=== PATIENT | male | born 1965 | race Caucasian/White ===

== ENCOUNTER 2020-07-01 08:23 | Inpatient (IN) | payer SELFPAY ==
[2020-07-01] MEDS ORDERED: Succinylcholine 200 MG/10 ml SYRINGE FS ONE (08:30)
[2020-07-01] MEDS ORDERED: Fentanyl 100 MCG/2 ML VIAL ONE ×2 (08:48→09:24)
[2020-07-01] MEDS ORDERED: Propofol 1,000 MG/100 ML VIAL IV ONE ×2 (08:51→09:34)
[2020-07-01 09:12] LABS: Actual Bicarbonate (HCO3a) 22.4 mEq/L (22-28); Analyzer IN Cardio ER; Base Excess (BEa) -3.3 mEq/L (-2.0 to +3.0); CO2 Tension 42.7 mmHg (35.0-45.0); Calcium, Ionized (arterial) 1.15 mmol/L (1.12-1.30); Carboxyhemoglobin (COHb) 0.9 gm% (0.0-3.0); Potassium - ABG Lab 3.85 mmol/L (3.70-5.30); pH, Arterial 7.34 (7.35-7.45)
[2020-07-01] MEDS ORDERED: fentaNYL Citrate/PF 2,000 MCG in Sodium Chloride 0.9% 60 ML IV SCH (09:15)
[2020-07-01 09:36] LABS: ALV-art Gradient 581.625 mmHg (0-20); Puncture Site RRA
--- NOTE | 2020-07-01 09:41 | RAD ---
CHEST 1 VIEW: Date: 07/01/2020 INDICATION: History of intubation. COMPARISON: None. FINDINGS: The patient is intubated with gastric catheter placement. Gastric catheter projects below the left he midiaphragm beyond the field of view. There is elevation of the left hemidiaphragm. There is slight i ncreased opacity in both lower lobes suspicious for subsegmental volume loss. Component of aspiration could have a similar appearance. No pneumothorax is grossly evident. No definite acute osseous abnor mality is noted. IMPRESSION: 1. Mild cardiomegaly. 2. ETT tube and gastric catheter placement. 3. Elevation of left hemidiaphragm. 4. Bibasilar air space disease possibly related to subsegmental atelectasis, pneumonia, or aspiratio n. Continued follow-up is recommended. POS: BH
--- NOTE | 2020-07-01 09:42 | CT ---
CT Brain WO Con History: Known head bleed. Comparison: CT brain same day Findings: Large intraparenchymal hemorrhage of the right temporoparietal lobe has increased in size. The greatest AP dimension is 5.2 cm, previously 3.4 cm. The greatest transverse dimension measures 5 cm, there is a 4 cm. Intraventricular hemorrhage has progressed with hemorrhage within both the rig ht and left lateral ventricles, third and fourth ventricles. There is also right sylvian fissure subarachnoid hemorrhage. Early subfalcine herniation. Right-left midline shift measures 8 mm. Small volume subarachnoid hemorr nika in the left sylvian fissure. Loss of normal sulcation due to mass effect and edema within the right frontal, parietal temporal and occipital lobes. Impression: Enlarging right temporoparietal intraparenchymal hemorrhage with progressive midline shif t, loss of normal right hemispheric sulcation due to mass effect, enlarging subarachnoid hemorrhage, and early subfalcine herniation.
[2020-07-01] MEDS ORDERED: manNITOL 20% 500 ML ONE ×2 (09:53→09:58)
[2020-07-01] MEDS ORDERED: manNITOL 20% 0 ML ONE (09:53)
[2020-07-01] MEDS ORDERED: Mannitol 12.5 GM/50 ML ONE ×2 (09:54→10:26)
[2020-07-01 10:04] LABS: #Eosinphils 0.1 thou/uL (0.0-0.7); #Monocytes 0.5 thou/uL (0.11-0.59); #Neutrophils 10.6 thou/uL (1.40-6.50); %Basophils 0.1 % (0.0-1.0); %Monocytes 4.1 % (0.0-10.0); %Neutrophils 86.9 % (42.0-75.0); Hemoglobin 16.3 g/dL (14.0-18.0); Mean Corpuscular HGB CONC 32.3 g/dL (32.0-36.0); Mean Corpuscular Hemoglobin 28.8 pg (27.0-31.0); Mean Corpuscular Volume 89.4 fL (78.0-98.0); Mean Platelet Volume 8.5 fL (7.4-10.4); Platelet Count 247 thou/uL (130-400); RBC Distribution Width 14.9 % (11.5-14.5); Red Blood Cell (RBC) Count 5.66 mill/uL (4.70-6.10); White Blood Cell (WBC) Count 12.2 thou/uL (4.8-10.8)
[2020-07-01] MEDS ORDERED: levETIRAcetam 2,000 MG in Sodium Chloride 0.9% 100 ML IVPB SCH (10:15)
[2020-07-01] MEDS ORDERED: niCARdipine 20MG In NaCl 20 MG/200 ML BAG ONE (10:17)
[2020-07-01] MEDS ORDERED: levETIRAcetam in NS 200 ML ONE (10:18)
[2020-07-01 10:23] LABS: ALT (SGPT) 27 U/L (8-55); AST (SGOT) 34 U/L (5-34); Albumin 4.2 g/dL (3.5-5.0); Alkaline Phosphatase 68 U/L (40-110); Anion Gap 16 mmol/L (10-20); BUN (Urea Nitrogen) 16 mg/dL (8.4-25.7); Bilirubin, Total 0.8 mg/dL (0.2-1.2); Calc. Creatinine Clearance 0 mL/min (70-130); Carbon Dioxide 26 mmol/L (22-29); Chloride 103 mmol/L (98-107); Estimated GFR-MDRD 79; Globulin 5.1 g/dL (2.4-3.5); Glucose 196 mg/dL (70-105); Potassium 4.6 mmol/L (3.5-5.1); Protein, Total 9.3 g/dL (6.0-8.3); Sodium 140 mmol/L (136-145)
[2020-07-01] MEDS ORDERED: SODIUM CHLORIDE 3% IVPB SCH (10:30)
[2020-07-01 10:48] LABS: INR-International Normal Ratio 1.5; Prothrombin Time 18.1 sec (12.0-14.7)
[2020-07-01 10:49] LABS: PTT 47.1 sec (22.9-36.1)
[2020-07-01] MEDS ORDERED: Sodium Chloride 0.9% 1,000 ML IV SCH (11:15)
[2020-07-01] MEDS: Sodium Chloride 0.9% 1,000 ML IV SCH (13:15)
[2020-07-01] MEDS ORDERED: niCARdipine 25 MG in Sodium Chloride 0.9% 250 ML 240 ML IVPB SCH ×2 (15:00→15:05)
--- NOTE | 2020-07-01 15:22 | PDOC.HHP ---
Hospitalist HPI - History of Present Illness Altered mental state History of Present Illness: Is a 54-year-old male patient with a history of hypertension, diabetes who was transferred from [place] on account of intracerebral hemorrhage. He presented there drowsy with dysphagia and hemiplegia CT scan noted intracerebral bleed. Patient had hypertension but has generally been nonadherent with his medications according to his At presentation here his blood pressure 164/87, pulse 71, temperature 98 sa turation 90% on room air. His labs showed WBC 12.2, CMP is essentially within normal limits besides glucose of 196, serum osmolality checked was 300. He was intubated on account of worsening mental status. Blood gas was 7.34 pH, bicarb 42.7. Repeat imaging was consistent with worsening intracerebral hemorrhage with enlarging right temporoparietal intraparenchymal bleed with progressive midline shift. Neurosurgery was consulted. He was started on Cardene drip for blood pressure control Hospitalist team consulted for admission. Hospitalist ROS - Review of Systems ROS unobtainable: due to mental status - Exam General - other findings: On bed on ventilator Heart: RRR, no murmur, no gallops Respiratory: no wheezes, no rales, no ronchi Extremities: no cyanosis, no clubbing, no edema Extremities - other findings: Chronic stasis dermatitis of left leg Psychiatric - other findings: Unresponsive on ventilator Hospitalist Results - Labs Result Diagrams: 07/01/20 09:50 07/01/20 17:32 Lab results: WBC 12.2 thou/uL (4.8-10.8) H 07/01/20 09:50 Hgb 16.3 g/dL (14.0-18.0) 07/01/20 09:50 Hct 50.6 % (42.0-52.0) 07/01/20 09:50 MCV 89.4 fL (78.0-98.0) 07/01/20 09:50 Plt Count 247 thou/uL (130-400) 07/01/20 09:50 Neutrophils % 86.9 % (42.0-75.0) H 07/01/20 09:50 ABG pH 7.34 (7.35-7.45) L 07/01/20 09:10 ABG pCO2 42.7 mmHg (35.0-45.0) 07/01/20 09:10 ABG pO2 78.0 mmHg (80.0-100.0) L 07/01/20 09:10 Sodium 140 mmol/L (136-145) 07/01/20 09:50 Potassium 4.6 mmol/L (3.5-5.1) 07/01/20 09:50 Chloride 103 mmol/L (98-107) 07/01/20 09:50 Carbon Dioxide 26 mmol/L (22-29) 07/01/20 09:50 BUN 16 mg/dL (8.4-25.7) 07/01/20 09:50 Creatinine 0.99 mg/dL (0.7-1.3) 07/01/20 09:50 Glucose 196 mg/dL (70-105) H 07/01/20 09:50 Calcium 9.0 mg/dL (7.8-10.44) 07/01/20 09:50 Total Bilirubin 0.8 mg/dL (0.2-1.2) 07/01/20 09:50 AST 34 U/L (5-34) 07/01/20 09:50 ALT 27 U/L (8-55) 07/01/20 09:50 Alkaline Phosphatase 68 U/L (40-110) 07/01/20 09:50 Troponin I Less than 0.010 ng/mL (< 0.028) 07/01/20 09:50 Serum Total Protein 9.3 g/dL (6.0-8.3) H 07/01/20 09:50 Albumin 4.2 g/dL (3.5-5.0) 07/01/20 09:50 Hospitalist H&P A/P - Plan Plan: 54-year-old female with a history of hypertension and diabetes transferred from [place] on account of intracerebral hemorrhage. Intracerebral hemorrhage and worsening on repeat CT scan. Admit to CCU for blood pressure control and monitoring. Intracerebral hemorrhage Admit to CCU Blood pressure control target systolic blood pressure 140 Start Cardizem drip Neurosurgery consultedappreciate input. Hypertension BP controlled on Cardizem Start home BP medications Monitor Diabetes mellitus Correctional insulin Monitor glucose. VT prophylaxisSCD CODE STATUSon discussion with wifepalliative care consulted
--- NOTE | 2020-07-01 15:23 | PDOC.HHP ---
Hospitalist HPI - History of Present Illness AMS Hospitalist Results - Labs Result Diagrams: 07/01/20 09:50 07/01/20 09:50 Lab results: WBC 12.2 thou/uL (4.8-10.8) H 07/01/20 09:50 Hgb 16.3 g/dL (14.0-18.0) 07/01/20 09:50 Hct 50.6 % (42.0-52.0) 07/01/20 09:50 MCV 89.4 fL (78.0-98.0) 07/01/20 09:50 Plt Count 247 thou/uL (130-400) 07/01/20 09:50 Neutrophils % 86.9 % (42.0-75.0) H 07/01/20 09:50 ABG pH 7.34 (7.35-7.45) L 07/01/20 09:10 ABG pCO2 42.7 mmHg (35.0-45.0) 07/01/20 09:10 ABG pO2 78.0 mmHg (80.0-100.0) L 07/01/20 09:10 Sodium 140 mmol/L (136-145) 07/01/20 09:50 Potassium 4.6 mmol/L (3.5-5.1) 07/01/20 09:50 Chloride 103 mmol/L (98-107) 07/01/20 09:50 Carbon Dioxide 26 mmol/L (22-29) 07/01/20 09:50 BUN 16 mg/dL (8.4-25.7) 07/01/20 09:50 Creatinine 0.99 mg/dL (0.7-1.3) 07/01/20 09:50 Glucose 196 mg/dL (70-105) H 07/01/20 09:50 Calcium 9.0 mg/dL (7.8-10.44) 07/01/20 09:50 Total Bilirubin 0.8 mg/dL (0.2-1.2) 07/01/20 09:50 AST 34 U/L (5-34) 07/01/20 09:50 ALT 27 U/L (8-55) 07/01/20 09:50 Alkaline Phosphatase 68 U/L (40-110) 07/01/20 09:50 Troponin I Less than 0.010 ng/mL (< 0.028) 07/01/20 09:50 Serum Total Protein 9.3 g/dL (6.0-8.3) H 07/01/20 09:50 Albumin 4.2 g/dL (3.5-5.0) 07/01/20 09:50
--- NOTE | 2020-07-01 15:51 | PRG ---
DATE OF SERVICE: 07/01/2020 Mr. Siddiqui is a 54-year-old man who was transferred to [facility] via EMS transported from [facility] ER after development of left-sided hemiparesis this morning. A CT scan performed there and then repeated at [facility] ER reveals a large right-sided intraparenchymal hematoma spanning much of the superficial and deep right frontotemporal lobes. There is a measurable 8 mm midline shift, right to left. There is also a small rim of vasogenic edema down the deeper areas nearest the basal ganglia and thalamus. Apparently, the patient had 2 days of some mild dysarthria, so perhaps some of this is subacute. Systolic pressures were up in the 200s on arrival . Cardene was initiated and now by the time I reached bedside, the patient is in the 120 systolic, which is much more appropriate systolic pressure given his condition. The patient was intubated given neurologic decline. At bedside, he is sedated with propofol and fentanyl, and as such, my neurologic examination is unreliable. Apparently, the patient was spontaneously moving the right upper extremity and right lower extremity upon arrival. The patient's was at bedside and provided some additional history. He does not take any blood thinning medications of any kind, but does take multiple medications for hypertension. Neurosurgery's recommendation at this time is nonsurgical. He will need maximal medical management. I did discuss that this is a very devastating hemorrhage given the size and location as well as midline shift. He will use mannitol in an attempt to reduce midline shift and track the patient's neurologic exam. We will also lower, if not, completely turned off sedation as long as the patient tolerates the vent to get a better understanding of his neurologic examination as well over the course of time. We will repeat a CT scan this afternoon and adjust mannitol dose . Job ID: [id number]
--- NOTE | 2020-07-01 16:31 | PDOC.FMACP ---
Advance Care Planning - Problem (1) Intracerebral hemorrhage Status: Acute Code(s): I61.9 - NONTRAUMATIC INTRACEREBRAL HEMORRHAGE, UNSPECIFIED (2) Hypertension Status: Acute Code(s): I10 - ESSENTIAL (PRIMARY) HYPERTENSION (3) Palliative care encounter Status: Acute Code(s): Z51.5 - ENCOUNTER FOR PALLIATIVE CARE (4) Respiratory failure requiring intubation Status: Acute Code(s): J96.90 - RESPIRATORY FAILURE, UNSP, UNSP W HYPOXIA OR HYPERCAPNIA - Note Participants: family, surrogate decision-maker, palliative care Summary: Palliative Care discussed Advanced Care Planning with patient Elinor. The diagnosis, prognosis and goals of care were discussed. Appropriate forms and documentation to accomplish the goals of care were discussed. She had discussed DNAR status with Dr Lawson, however decided initially not to sign consent for DNAR. Short life review with . States patient lived fully and would not desire to live if he was not fully functional. His nickname is "Midnight". After discussing what he would desire she agreed to sign consent for DNAR. She is understanding of poor prognosis as discussed by neuro and other physicians. Palliative Care will revisit Goal of Care with 07/02/2020. Time Spent (mins): 45
[2020-07-01 17:53] LABS: Anion Gap 16 mmol/L (10-20); BUN (Urea Nitrogen) 16 mg/dL (8.4-25.7); Calc. Creatinine Clearance 245 mL/min (70-130); Calcium 8.8 mg/dL (7.8-10.44); Carbon Dioxide 21 mmol/L (22-29); Chloride 107 mmol/L (98-107); Estimated GFR-MDRD Greater than 90; Glucose 119 mg/dL (70-105); Potassium 4.2 mmol/L (3.5-5.1); Sodium 140 mmol/L (136-145)
--- NOTE | 2020-07-01 18:02 | CT ---
CT OF THE BRAIN WITHOUT CONTRAST: 07/01/20 INDICATIONS: 54-year-old male with intraparenchymal hemorrhage. COMPARISON: Prior exam dated 07/01/20 at 9:27 a.m. and 7:19 a.m. FINDINGS: The large intraparenchymal hemorrhage involving the right deep fields nuclei and right temporal lobe is relatively stable in size measuring 5.4 x 5 cm on image 21 of series 2 with right lateral intraventr icular extension. There is right to left midline shift of approximately 6 mm that appears stable appe aring. There is intraventricular extension into the posterior horns of the lateral ventricles as well as within the third and fourth ventricle. No hydrocephalus is evident. There is some effacement of t he sulci of the right temporal lobe and right frontoparietal convexity due to mass effect from the in traparenchymal hemorrhage. There is mild surrounding vasogenic edema that appears similar appearing. There is persistent mild crowding at the level of the basilar cisterns. No additional acute changes a re evident. Skull is intact. Mastoid air cells and paranasal sinuses are clear. The patient is intuba teofilo. IMPRESSION: Relatively stable size of the intraparenchymal hemorrhage involving the right deep fields nuclei and ri ght temporal lobe with right lateral ventricular extension. The right to left midline shift is simil ar measuring approximately 6 mm. The basilar cisterns remain mildly crowded. Continued close clinical follow-up and CT follow-up is recommended. POS: CORI
[2020-07-01] MEDS: Mannitol 12.5 GM/50 ML SLOW IVP SCH (18:38)
--- NOTE | 2020-07-01 19:15 | CON ---
DATE OF CONSULTATION: 07/01/2020 HISTORY OF PRESENT ILLNESS: Mr. Siddiqui is a 54-year-old, according to his , who has hypertension. He hates taking medicine, so he generally does not take his blood pressure medicine. He presented with several days of dysarthria and then hemiplegia eventually. He declined to go to the doctor, according to his , which is consistent with his longstanding personality. He was found to have a large parenchymal brain hemorrhage and he is hemiplegic, on the ventilator. PAST MEDICAL HISTORY: 1. Diabetes. 2. Lipid disorder. 3. Hypertension. FAMILY HISTORY: Negative for lung disease in early age, positive for hypertension. SOCIAL HISTORY: He drinks occasionally, smokes marijuana. He is a former smoker. REVIEW OF SYSTEMS: Not obtainable. MEDICATIONS: He is on no medications prior to admission. He had medications at home, but was not taking them, according to the . PHYSICAL EXAMINATION: VITAL SIGNS: Blood pressure 150/95, heart rate 60, respiratory rates in the 20s, and oximetry is 99% to 100%. HEENT: Pupils are fixed in the mid position. Sclerae are anicteric. He does not have a corneal reflex. He does not have a gag. NECK: Supple. LUNGS: Clear anteriorly. HEART: Regular rhythm. ABDOMEN: Soft. Very protuberant. EXTREMITIES: With severe stasis changes. Apparently, he has had severe cellulitis in the past. IMAGING: CT shows a very large parenchymal brain hemorrhage. PLAN: His says he would not want to go through a code or any type of prolonged support in a situation, so I have made him a do not resuscitate patient per the 's wishes. We will continue current supportive measures. He is not expected to survive. It is unclear whether Neurology or Neurosurgery was consulted as there are no notes in the computer yet. Critical care time 35 min. Job ID: [id number] [facility]
[2020-07-01] MEDS ORDERED: Dextrose 5% in Water 1,000 ML IV PRN ×2 (19:27→23:05)
[2020-07-01] MEDS ORDERED: Dextrose 50% Abboject 50 ML SYRINGE SLOW IVP PRN ×2 (19:27→23:05)
[2020-07-01] MEDS ORDERED: levETIRAcetam in NS 100 ML IVPB SCH (21:00)
[2020-07-01] MEDS ORDERED: HumaLOG 300 UNITS/3 ML VIAL SC PRN (23:05)
[2020-07-01 23:11] LABS: Anion Gap 17 mmol/L (10-20); BUN (Urea Nitrogen) 14 mg/dL (8.4-25.7); Calc. Creatinine Clearance 242 mL/min (70-130); Calcium 8.7 mg/dL (7.8-10.44); Carbon Dioxide 20 mmol/L (22-29); Chloride 109 mmol/L (98-107); Estimated GFR-MDRD Greater than 90; Glucose 130 mg/dL (70-105); Potassium 3.9 mmol/L (3.5-5.1); Sodium 142 mmol/L (136-145)
[2020-07-01 23:45] LABS: SARS-CoV-2 MS2 Positive; SARS-CoV-2 N Gene Negative; SARS-CoV-2 S Gene Negative; SARS-CoV-2 by NAA Not Detected (NotDetected); SARS-CoV-2 orf1ab Negative
[2020-07-02] MEDS: Sodium Chloride 0.9% 1,000 ML IV SCH ×3 (00:20→20:54)
[2020-07-02] MEDS: Labetalol HCl 100 MG/20 ML VIAL SLOW IVP PRN ×2 (00:22→09:05)
[2020-07-02] MEDS: niCARdipine 50 MG in Sodium Chloride 0.9% 250 ML 230 ML IVPB SCH ×4 (00:22→11:45)
[2020-07-02] MEDS: Mannitol 12.5 GM/50 ML SLOW IVP SCH (00:28)
[2020-07-02 03:43] LABS: Anion Gap 13 mmol/L (10-20); BUN (Urea Nitrogen) 12 mg/dL (8.4-25.7); Calc. Creatinine Clearance 236 mL/min (70-130); Calcium 8.9 mg/dL (7.8-10.44); Carbon Dioxide 22 mmol/L (22-29); Chloride 110 mmol/L (98-107); Estimated GFR-MDRD Greater than 90; Glucose 143 mg/dL (70-105); Potassium 3.9 mmol/L (3.5-5.1); Sodium 141 mmol/L (136-145)
[2020-07-02 03:59] LABS: #Basophils 0.1 thou/uL (0.0-0.2); #Eosinphils 0.1 thou/uL (0.0-0.7); #Monocytes 1.1 thou/uL (0.11-0.59); #Neutrophils 13.5 thou/uL (1.40-6.50); %Basophils 0.4 % (0.0-1.0); %Eosinophils 0.4 % (0.0-10.0); %Lymphocytes 6.4 % (21.0-51.0); %Neutrophils 85.9 % (42.0-75.0); Mean Corpuscular HGB CONC 32.6 g/dL (32.0-36.0); Mean Corpuscular Hemoglobin 29.4 pg (27.0-31.0); Mean Platelet Volume 8.2 fL (7.4-10.4); Platelet Count 236 thou/uL (130-400); RBC Distribution Width 14.9 % (11.5-14.5); Red Blood Cell (RBC) Count 5.45 mill/uL (4.70-6.10); White Blood Cell (WBC) Count 15.7 thou/uL (4.8-10.8)
[2020-07-02] MEDS ORDERED: Mannitol 12.5 GM/50 ML SLOW IVP SCH (06:00)
--- NOTE | 2020-07-02 07:11 | PRG ---
DATE OF SERVICE: 07/01/2020 Mr. Siddiqui is a 54-year-old gentleman, transferred in for dense left hemiparesis. CT examination showed a large right intraparenchymal hemorrhage with associated mass effect, midline shift. He had been intubated and started on Cardene drip for hypertension. Our plan of management at this point in time is one of nonsurgical management. We will treat him with maximal medical management including osmotic agents and appropriate blood pressure control as warranted. This was communicated with his . She has made him DNR. Job ID: [id number]
--- NOTE | 2020-07-02 10:56 | PRG ---
DATE OF SERVICE: 07/02/2020 Mr. Siddiqui is on the second day of his hospital admission for acute intracerebral hemorrhage. This morning, he is still on fentanyl for very mild sedation, but Diprivan has been turned off. He is following commands briskly and repetitively in the right upper and right lower extremities, but remains densely hemiparetic on the left in the upper and lower extremities. He opens his eyes when spoken to and appears to be breathing some on the vent on his own. I think he is actually doing very well given the circumstances. He has responded well to mannitol therapy. I do not think that he will need any more at least for the time being. We will continue to track his neurologic exam, and if this needs to be restarted, we can do so. I do not anticipate a need for CT scan today. We will track his neurologic examination for this purpose. We will defer management and weaning of ventilator to our colleagues in Critical Care. The patient is requiring quite a bit of Cardene to keep his systolic pressures even just below 160. I also added p.r.n. labetalol, which did not provide any help. This will again continue to be tightly monitored and held under 160 systolic. Neurosurgery will continue to follow along. This will remain nonsurgical management at this time. Job ID: [id number]
[2020-07-02 11:00] VITALS: BP 163/80
--- NOTE | 2020-07-02 11:05 | PDOC.HOSPP ---
- Subjective Encounter Date: 07/02/20 Encounter Time: 11:03 Subjective: Mr. Siddiqui was seen today in follow-up of ICH. He is intubated, but he responds to verbal stimuli. He will give a thumbs up sign and squeeze my hand to command. - Objective Vital Signs & Weight: Vital Signs (12 hours) Temp Pulse Pulse Pulse Resp BP BP 07/02/20 10:59 66 163/80 H 07/02/20 09:05 69 163/78 H 07/02/20 08:39 107 H 100 163/81 H 07/02/20 07:41 69 156/74 H 07/02/20 06:00 24 H 07/02/20 04:00 99.6 F 24 H 07/02/20 02:35 72 153/73 H 07/02/20 02:00 24 H 07/02/20 00:22 66 165/92 H 07/02/20 00:00 100.3 F H 24 H BP Pulse Ox Pulse Ox 07/02/20 10:59 07/02/20 09:05 07/02/20 08:39 162/77 H 97 97 07/02/20 07:41 07/02/20 06:00 07/02/20 04:00 07/02/20 02:35 07/02/20 02:00 07/02/20 00:22 07/02/20 00:00 Weight Weight 335 lb 1.642 oz Most Recent Monitor Data Heart Rate from ECG 80 NIBP 158/82 NIBP BP-Mean 102 Respiration from ECG 24 SpO2 96 I&O: 07/01/20 07/02/20 07/03/20 06:59 06:59 06:59 Intake Total 2409 Output Total 4035 Balance -1626 Result Diagrams: 07/02/20 03:19 07/02/20 03:19 Additional Labs: Accuchecks 07/02/20 07/02/20 07/01/20 09:00 00:15 21:47 POC Glucose 137 H 138 H 130 H Hospitalist ROS - Medication Medications: Active Medications Generic Name Dose Route Start Last Admin Trade Name Freq PRN Reason Stop Dose Admin Fentanyl Citrate 2,000 mcg/ 100 mls @ 0 mls/hr 07/01/20 09:15 07/02/20 05:37 Sodium Chloride IV 07/31/20 09:15 100 mls INF LISA Administration Protocol Per Protocol Sodium Chloride 1,000 mls @ 100 mls/hr 07/01/20 13:15 07/02/20 00:20 Normal Saline 0.9% IV 1,000 mls .Q10H LISA Administration Nicardipine HCl 50 mg/ Sodium 250 mls @ 0 mls/hr 07/02/20 00:15 07/02/20 08:00 Chloride IVPB 250 mls INF LISA Administration Protocol Titrate Labetalol HCl 10 mg 07/02/20 00:11 07/02/20 09:05 Labetalol Hcl 100 Mg/20 Ml Vial SLOW IVP 10 mg Q4H PRN Administration SBP<=140 - Exam Eye: PERRL, anicteric sclera Heart: RRR, no murmur, no gallops Respiratory: CTAB, no wheezes, no rales, no ronchi, normal chest expansion Gastrointestinal: soft, non-tender, non-distended, normal bowel sounds, no palpable masses, no hepatomegaly Extremities: no cyanosis, no edema Neurological: hemiplegia (left hemiplegia) Hosp A/P (1) Hypertension Code(s): I10 - ESSENTIAL (PRIMARY) HYPERTENSION Status: Acute (2) Intracerebral hemorrhage Code(s): I61.9 - NONTRAUMATIC INTRACEREBRAL HEMORRHAGE, UNSPECIFIED Status: Acute (3) Respiratory failure requiring intubation Code(s): J96.90 - RESPIRATORY FAILURE, UNSP, UNSP W HYPOXIA OR HYPERCAPNIA Status: Acute - Plan * Acute ICH- patient has a significantly large ICH, with midline shift,- he is currently intubated * Continue to keep blood pressure goal of systolic 140. Will add Nitropaste * Continue supportive care
[2020-07-02 12:36] VITALS: BMI 44.1
[2020-07-02] MEDS: Nitroglycerin 2% Ointment 1 INCH/1 GM Packet TOP SCH ×2 (13:11→20:54)
--- NOTE | 2020-07-02 16:52 | PDOC.PALPN ---
Palliative Progress Note - Subjective Intubated, mechanical ventilation. Fentanyl for mild sedation, Diprivan has been stopped. Appears to be over breathing vent on occasion as per primary nurse. Opens eyes, movement to right upper an lower extremity. No further Mannitol today. Cardene to maintain systolic pressure. Neurosurgery confirms non surgical management at this time. - Objective Vital Signs: Vital Signs - Most Recent Temp Pulse Resp BP Pulse Ox 99.8 F H 63 24 H 163/80 H 97 07/02/20 12:00 07/02/20 15:18 07/02/20 14:00 07/02/20 10:59 07/02/20 08:39 - Physical Exam Constitutional: ill appearing HEENT: EOMI, moist MMs Respiratory: no rhonchi, no wheezing Deviation from normal: Mechanical ventilation Cardiovascular: no significant murmur, RRR Gastrointestinal: soft Deviation from normal: Obese Genitourinary: ortega catheter Musculoskeletal: pulses present Neurology: hemiplegia Deviation from normal: Left hemiplegia Skin: cap refill <2 seconds Deviation from normal: Appears oriented to self - Assessment (1) Intracerebral hemorrhage Code(s): I61.9 - NONTRAUMATIC INTRACEREBRAL HEMORRHAGE, UNSPECIFIED Current Visit: Yes Status: Acute (2) Hypertension Code(s): I10 - ESSENTIAL (PRIMARY) HYPERTENSION Current Visit: Yes Status: Acute (3) Palliative care encounter Code(s): Z51.5 - ENCOUNTER FOR PALLIATIVE CARE Current Visit: Yes Status: Acute (4) Respiratory failure requiring intubation Code(s): J96.90 - RESPIRATORY FAILURE, UNSP, UNSP W HYPOXIA OR HYPERCAPNIA Current Visit: Yes Status: Acute - Plan Plan: Palliative care met with patient and his mother. Reviewed what patient would desire, but also onset of movement to right extremities and opening eyes. Understanding of fragile blood pressure/systolic hypertension and confirmed continuation of DNAR status. Discussed waiting to see if the patient can participate in conversation in relation to wishes, specifically Trach and Peg. Family requested to speak with Neuro, communicated with Kimberly YOUSIF. Palliative Care will continue to support and mother of patient and assist with goal of care that would reflect patient wishes. Spiritual care consult placed. Please also refer to Palliative Care notes in note section. [45] minutes spent on this encounter with >50% of the time in counseling and coordination of care. - ROS Non Response: due to endotracheal tube
--- NOTE | 2020-07-02 17:14 | PRG ---
DATE OF SERVICE: 07/02/2020 SUBJECTIVE: Mr. Siddiqui is not improved at all. CAT scan yesterday afternoon showed no worsening. OBJECTIVE: VITAL SIGNS: Heart rate is in the 60s, FiO2 is 50, blood pressure 152/70, respiratory rates in the 20s. LUNGS: Clear. HEART: Regular rhythm. ABDOMEN: Soft. EXTREMITIES: Without edema. LABORATORY DATA: White count 15.7, hemoglobin 16, platelets 236. Electrolytes are normal. IMPRESSION: Massive parenchymal brain hemorrhage. He is now do not resuscitate status. His wants to withdraw care, but she is not sure at what point. We will continue to follow. Job ID: [id number]
[2020-07-02] MEDS: Morphine 4 MG/ML VIAL SLOW IVP PRN ×4 (18:25→22:32)
[2020-07-02] MEDS: Lorazepam 2 MG/ML VIAL SLOW IVP PRN ×2 (18:25→19:33)
[2020-07-02 19:57] VITALS: TEMP 100.5
--- NOTE | 2020-07-02 21:22 | PRG ---
DATE OF SERVICE: Discussions have been held with the patient's and mother via telephone regarding the patient's prognosis and outlook. I did express that this is still a very grave hemorrhage with likely substantial morbidity as a result, although has 24 hours gone by. He has a better chance to survivability, although functional survivability is more difficult to prognosticate upon, although it is almost certain to have significant motor deficit due to left upper and left lower extremity, and it is certainly possible that he may not recover much function in terms of swallowing. For this reason, I cannot confirm with great certainty that he will be able to ever mean from either the trach or PEG tubes. This is the brace taking point for his family members about having significantly poor quality of life, which again is a reasonable assessment given size of hemorrhage in his premorbid state leading up to admission. After extensive discussion, family expresses to me that likely his wishes will be to move forward with discontinuation of care and comfort and extubation. We will leave this to their further discussion and discussion with the primary team. Neurosurgery at this time will sign off as there will be no reason for intervention for Mr. Siddiqui as he is being DNR and patient's family expressed direct preference to avoid extending his life at this time. Again, given greatly poor chance for significant functional recovery. Job ID: [id number]
[2020-07-02] MEDS ORDERED: Scopolamine 1.5 mg/72 hour Patch TD SCH (23:00)
[2020-07-03] MEDS: Lorazepam 2 MG/ML VIAL SLOW IVP PRN ×4 (00:04→03:32)
[2020-07-03] MEDS: Morphine 4 MG/ML VIAL SLOW IVP PRN ×4 (00:04→03:32)
[2020-07-03] MEDS ORDERED: Atropine Sulfate 1% Ophth Soln 5 ml Bottle PO PRN (00:53)
[2020-07-03] MEDS: Sodium Chloride 0.9% 1,000 ML IV SCH (02:27)
[2020-07-03] MEDS: Nitroglycerin 2% Ointment 1 INCH/1 GM Packet TOP SCH (02:28)
--- NOTE | 2020-07-04 01:46 | DIS ---
DATE OF ADMISSION: 07/01/2020 DATE OF DISCHARGE: 07/03/2020 DATE OF : 07/02/2020. DIAGNOSES: 1. Massive intracranial hemorrhage. 2. Hypertension. 3. Diabetes mellitus. 4. Hypertensive emergency. CODE STATUS: DNAR. ALLERGIES: NO KNOWN DRUG ALLERGIES. IMAGING DONE DURING THE HOSPITAL STAY: The patient had a CT scan of the brain showing an enlarging right temporoparietal hemorrhage with midline shift and early subfalcine herniation. Repeat CT scan showed stability of the intraparenchymal hemorrhage involving the right deep fields nuclei and right temporal lobe with right lateral ventricle extension. The [id number] midline shift is similar measuring approximately 6 mm. The basilar cisterns remain mildly crowded. HOSPITAL COURSE: Mr. Siddiqui was a 54-year-old gentleman, who was admitted to the hospital after he became extremely drowsy and was having difficulty swallowing. He was evaluated originally at the [facility] in [place]. There, CT scan demonstrated a large intracranial hemorrhage. He was transferred to our facility for a neurosurgical evaluation. Repeat CT scan demonstrated progression of the hemorrhage. He was admitted and intubated and mildly hyperventilated and placed on mannitol. The neurosurgery team evaluated the patient and felt that he was not a surgical candidate. They met with the family to discuss the prognosis and treatment options. The patient's had talked with the when he was well, and he had expressed a strong desire never to have a trach or PEG tube. Given the size of the intracranial hemorrhage, it was felt that at some point if he was able to be extubated successfully, he would have a tracheostomy and PEG tube, and for this reason, the made a decision to withdraw care. He was taken off the ventilator and several hours thereafter due to a massive intracranial hemorrhage. Job ID: [id number]
--- NOTE | 2020-07-07 04:00 | PQF ---
Dear : Neo Herring Date 07/07/2020 Please exercise your independent, professional judgment in responding to the clarification form. Clinical indicators are provided on the bottom of this form for your review Can you please further clarify the diagnosis of the patient? Please check appropriate box(es): [ X] Cerebral edema / Vasogenic edema [ ] Compression of brain Due to Massive intracranial hemorrhage [ ] Clinically i8n significant CT Findings [ ] Other diagnosis please specify [ ] Unable to determine Physician Signature: Date/Time: For continuity of documentation, please document condition throughout progress notes and discharge summary. Thank You. To be completed by CDI/Coding staff for physician review: Present Clinical Indicators - Signs / Symptoms / Labs Results and Location in Medical Record [ x ] Right-left midline shift measures 8mm CT Brain 07/01 pg.1 [ x ] Small volume subarachnoid hemorrhage in the left sylvian fissure CT Brain 07/01 pg.1 [ x ] Intraparenchymal bleed with progressive midline shift H and P pg.1 [ x ] There is mild surrounding vasogenic edema that appears similar appearing CT Brain 07/01 pg.1 [ x ] Parenchymal brain hemorrhage Consult pg.2 [ x ] Mass effect, midline shift PN pg.1 07/01 Present Risk Factors Results and Location in Medical Record [ x ] intraparencymal bleed H and P pg.1 [ x ] HTN H and P pg.1 [ x ] DM H and P pg.1 [ x ] Acute respiratory failure [ x ] HLD Consult pg.1 [ x ] Smokes marijuana Consult pg.1 [ x ] Former smoker Consult pg.1 [ x ] Hypertensive emergency DS pg.1 Present Treatments Results and Location in Medical Record [ x ] CT Brain 07/01 CT Brain 07/01 [ x ] CCU H and P pg.3 [ x ] Neurology Consult Dr. Bello 07/01 [ x ] Mannitol 25mg IV MAR [ x ] IV Fluids MAR [ x ] Intubation ED Provider pg.4 CDS/Side Laster Tack Signature: Luis Miguel Hernández Phone #: [phone] Date: 07/07/20 This is a permanent part of the Medical Record [facility]
== END 2020-07-03 03:45 | disposition expired | DRG 64 ==
LOC: ERS 08:23 → CCU 10:34 → ONC 07-02 20:53
PROVIDERS: ADMIT Student in an Organized Health Care Education/Training Program; ATTEND Student in an Organized Health Care Education/Training Program
PROC: 0BH17EZ Insertion of Endotracheal Airway into Trachea, Via Natural or Artificial Opening (ICD-10-PCS; principal; 2020-07-01)
PROC: 5A1945Z Respiratory Ventilation, 24-96 Consecutive Hours (ICD-10-PCS; 2020-07-01)
DX: I61.6 Nontraumatic intracerebral hemorrhage, multiple localized (principal); J96.01 Acute respiratory failure with hypoxia; G93.6 Cerebral edema; G81.94 Hemiplegia, unspecified affecting left nondominant side; I16.1 Hypertensive emergency; Z51.5 Encounter for palliative care; Z66 Do not resuscitate; Z20.828 Contact with and (suspected) exposure to other viral communicable diseases; R29.725 NIHSS score 25; R13.10 Dysphagia, unspecified; E11.9 Type 2 diabetes mellitus without complications; E78.5 Hyperlipidemia, unspecified; I10 Essential (primary) hypertension; F12.10 Cannabis abuse, uncomplicated; Z87.891 Personal history of nicotine dependence; Z79.899 Other long term (current) drug therapy; Z78.1 Physical restraint status; Z82.49 Family history of ischemic heart disease and other diseases of the circulatory system
CPT/HCPCS: 31500; 36415; 36416; 51702; 70450; 71045; 80048; 82805; 83930; 85025; 87635; 93005; 94002; 94003; 96365; 96366; 96368; 96375; J1953; J2060; J2150; J2270; J2704; J3010; J3490; J7050; J7131; J7799; U0003